=== PATIENT | male | born 1945 ===

== ENCOUNTER 2023-09-26 16:48 | Inpatient (IN) | payer MEDICARE, BC ==
[2023-09-26 17:03] LABS: BASOPHILS ABSOLUTE AUTO 0.03 K/uL (0.00-0.20); BASOPHILS PERCENT AUTO 0.4 % (0.0-1.0); EOSINOPHILS ABSOLUTE AUTO 0.04 K/uL (0.00-0.45); EOSINOPHILS PERCENT AUTO 0.5 % (0.0-6.0); HEMATOCRIT 46.4 % (42.0-52.0); HEMOGLOBIN 15.6 g/dL (14.0-18.0); IMMATURE GRAN ABSOLUTE AUTO 0.03 K/uL (0.00-0.05); IMMATURE GRAN PERCENT AUTO 0.4 % (0.0-0.4); LYMPHOCYTES ABSOLUTE AUTO 0.83 K/uL (1.00-4.80); LYMPHOCYTES PERCENT AUTO 10.9 % (24.0-44.0); MEAN CORPUSCULAR HEMOGLOBIN 29.8 pg (28.0-32.0); MEAN CORPUSCULAR HGB CONC 33.6 g/dL (32.0-36.0); MEAN CORPUSCULAR VOLUME 88.5 fL (83.0-99.0); MEAN PLATELET VOLUME 9.2 fL (9.4-12.4); MONOCYTES ABSOLUTE AUTO 0.61 K/uL (0.00-0.80); NEUTROPHILS ABSOLUTE AUTO 6.06 K/uL (1.80-7.70); NEUTROPHILS PERCENT AUTO 79.8 % (41.0-71.0); PLATELET COUNT,PLT 187 K/uL (150-400); RED BLOOD CELL COUNT 5.24 M/uL (4.52-5.90)
[2023-09-26 17:23] LABS: D-DIMER QUANTITATIVE 2.33 mg/L FEU (0.00-0.50); INR 3.15 (0.86-1.11); PTT,PARTIAL THROMBOPLSTIN TIME 55.1 SEC (23.9-30.7)
[2023-09-26 17:34] LABS: A/G RATIO 0.9 (0.9-1.6); ALBUMIN 3.2 g/dL (3.4-5.0); BILIRUBIN TOTAL 0.6 mg/dL (0.2-1.0); CARBON DIOXIDE,CO2 20.6 mmol/L (21.0-32.0); CREATININE 2.1 mg/dL (0.8-1.3); MAGNESIUM 1.9 mg/dL (1.8-2.4); POTASSIUM,K 4.9 mmol/L (3.5-5.1); PROTEIN TOTAL,TP 6.9 g/dL (6.4-8.2)
[2023-09-26 17:37] LABS: EST CRCL DRUG DOSING (CG) 30.79 mL/min
[2023-09-26] MEDS ORDERED: Sodium Chloride 0.9% 500 ML IV ONE (18:18)
[2023-09-26 18:25] LABS: CORONAVIRUS COVID-19 NAA NEGATIVE (NEGATIVE); INFLUENZA A NAA NEGATIVE (NEGATIVE); INFLUENZA B NAA NEGATIVE (NEGATIVE)
[2023-09-26] MEDS ORDERED: Iopamidol 755 MG/ML 500 ML Multipack Bottle IVPUSH STA (19:01)
[2023-09-27] MEDS ORDERED: Glucagon,Human Recombinant 1 MG Vial IM PRN (00:14)
[2023-09-27] MEDS ORDERED: 50% Dextrose in Water 50 ML Syringe IVPUSH PRN (00:14)
[2023-09-27] MEDS: Acetaminophen 325 MG Tab PO PRN ×2 (02:12→20:13)
[2023-09-27 06:25] LABS: BASOPHILS ABSOLUTE AUTO 0.04 K/uL (0.00-0.20); BASOPHILS PERCENT AUTO 0.6 % (0.0-1.0); EOSINOPHILS ABSOLUTE AUTO 0.03 K/uL (0.00-0.45); EOSINOPHILS PERCENT AUTO 0.5 % (0.0-6.0); HEMATOCRIT 45.2 % (42.0-52.0); IMMATURE GRAN ABSOLUTE AUTO 0.03 K/uL (0.00-0.05); IMMATURE GRAN PERCENT AUTO 0.5 % (0.0-0.4); LYMPHOCYTES ABSOLUTE AUTO 1.46 K/uL (1.00-4.80); LYMPHOCYTES PERCENT AUTO 22.3 % (24.0-44.0); MEAN CORPUSCULAR HEMOGLOBIN 29.1 pg (28.0-32.0); MEAN CORPUSCULAR HGB CONC 33.2 g/dL (32.0-36.0); MEAN CORPUSCULAR VOLUME 87.8 fL (83.0-99.0); MEAN PLATELET VOLUME 9.1 fL (9.4-12.4); MONOCYTES ABSOLUTE AUTO 0.72 K/uL (0.00-0.80); NEUTROPHILS ABSOLUTE AUTO 4.28 K/uL (1.80-7.70); NEUTROPHILS PERCENT AUTO 65.1 % (41.0-71.0); PLATELET COUNT,PLT 167 K/uL (150-400); RED BLOOD CELL COUNT 5.15 M/uL (4.52-5.90); WHITE BLOOD CELL COUNT,WBC 6.56 K/uL (3.9-11.3)
[2023-09-27] MEDS: Insulin Aspart 100 Units/ML 3 ML Pen SUBCUT SCH ×3 (06:30→16:56)
[2023-09-27 06:34] LABS: BILIRUBIN,URINE NEGATIVE (NEGATIVE); COLOR,URINE YELLOW; GLUCOSE,URINE NEGATIVE (NEGATIVE); KETONES,URINE 15 mg/dL (NEGATIVE); LEUKOCYTE ESTERASE,URINE SMALL (NEGATIVE); NITRITE,URINE NEGATIVE (NEGATIVE); OCCULT BLOOD,URINE SMALL (NEGATIVE); PH,URINE 5.5 (5.0-8.0); PROTEIN,URINE TRACE mg/dL (NEGATIVE); UROBILINOGEN,URINE 0.2 EU/dL (<2.0)
[2023-09-27 06:41] LABS: APPEARANCE,URINE HAZY
[2023-09-27 06:44] LABS: AMORPHOUS SEDIMENT,URINE LIGHT (NEGATIVE); BACTERIA,URINE 1+ (NEGATIVE); EPITHELIAL CELLS,URINE FEW (NONE-FEW)
[2023-09-27 06:55] LABS: A/G RATIO 0.9 (0.9-1.6); ALBUMIN 3.1 g/dL (3.4-5.0); BILIRUBIN TOTAL 0.7 mg/dL (0.2-1.0); CALCIUM 8.8 mg/dL (8.5-10.1); CARBON DIOXIDE,CO2 20.9 mmol/L (21.0-32.0); CREATININE 1.9 mg/dL (0.8-1.3); EST CRCL DRUG DOSING (CG) 34.04 mL/min; POTASSIUM,K 4.3 mmol/L (3.5-5.1); PROTEIN TOTAL,TP 6.6 g/dL (6.4-8.2)
[2023-09-27] MEDS ORDERED: Sodium Chloride 0.9% 1,000 ML IV SCH (09:15)
[2023-09-27 10:37] LABS: INR 2.84 (0.86-1.11)
[2023-09-27] MEDS: valACYclovir 500 MG Tab PO SCH ×2 (10:42→20:13)
[2023-09-27 11:09] LABS: HEMOGLOBIN A1C 6.5 %
[2023-09-27] MEDS: cefTRIAXone 1 GM in Sodium Chloride 0.9% 50 ML IV SCH (13:45)
[2023-09-27] MEDS ORDERED: Warfarin Sliding Scale SCH (14:00)
[2023-09-27 20:07] LABS: LACTIC ACID 1.9 mmol/L (0.4-2.0)
[2023-09-28] MEDS: Acetaminophen 325 MG Tab PO PRN ×2 (02:36→12:57)
[2023-09-28 06:50] LABS: BASOPHILS ABSOLUTE AUTO 0.03 K/uL (0.00-0.20); BASOPHILS PERCENT AUTO 0.5 % (0.0-1.0); EOSINOPHILS ABSOLUTE AUTO 0.09 K/uL (0.00-0.45); EOSINOPHILS PERCENT AUTO 1.4 % (0.0-6.0); HEMATOCRIT 42.2 % (42.0-52.0); HEMOGLOBIN 14.2 g/dL (14.0-18.0); IMMATURE GRAN ABSOLUTE AUTO 0.03 K/uL (0.00-0.05); IMMATURE GRAN PERCENT AUTO 0.5 % (0.0-0.4); LYMPHOCYTES ABSOLUTE AUTO 1.36 K/uL (1.00-4.80); LYMPHOCYTES PERCENT AUTO 21.2 % (24.0-44.0); MEAN CORPUSCULAR HEMOGLOBIN 29.5 pg (28.0-32.0); MEAN CORPUSCULAR HGB CONC 33.6 g/dL (32.0-36.0); MEAN CORPUSCULAR VOLUME 87.6 fL (83.0-99.0); MEAN PLATELET VOLUME 9.3 fL (9.4-12.4); MONOCYTES ABSOLUTE AUTO 0.83 K/uL (0.00-0.80); MONOCYTES PERCENT AUTO 12.9 % (0.0-8.0); NEUTROPHILS ABSOLUTE AUTO 4.09 K/uL (1.80-7.70); NEUTROPHILS PERCENT AUTO 63.5 % (41.0-71.0); PLATELET COUNT,PLT 167 K/uL (150-400); RED BLOOD CELL COUNT 4.82 M/uL (4.52-5.90); WHITE BLOOD CELL COUNT,WBC 6.43 K/uL (3.9-11.3)
[2023-09-28 07:18] LABS: INR 2.11 (0.86-1.11)
[2023-09-28] MEDS: Insulin Aspart 100 Units/ML 3 ML Pen SUBCUT SCH ×3 (07:27→18:19)
[2023-09-28 07:28] LABS: CALCIUM 8.4 mg/dL (8.5-10.1); CARBON DIOXIDE,CO2 19.9 mmol/L (21.0-32.0); CREATININE 1.7 mg/dL (0.8-1.3); EST CRCL DRUG DOSING (CG) 38.04 mL/min; POTASSIUM,K 4.3 mmol/L (3.5-5.1)
[2023-09-28] MEDS: valACYclovir 500 MG Tab PO SCH ×2 (08:56→20:01)
[2023-09-28] MEDS ORDERED: Sodium Chloride 0.9% 1,000 ML IV ONE (12:05)
[2023-09-28] MEDS: cefTRIAXone 1 GM in Sodium Chloride 0.9% 50 ML IV SCH (12:30)
[2023-09-28] MEDS: Metoprolol Succinate 100 MG Tab.ER PO SCH (12:30)
[2023-09-28] MEDS ORDERED: Warfarin 2.5 MG Tab PO ONE (14:00)
[2023-09-28] MEDS ORDERED: Warfarin Sliding Scale PO SCH (14:00)
[2023-09-28] MEDS ORDERED: atorvaSTATin 10 MG Tab PO SCH (21:00)
[2023-09-29 06:27] LABS: BASOPHILS ABSOLUTE AUTO 0.03 K/uL (0.00-0.20); BASOPHILS PERCENT AUTO 0.4 % (0.0-1.0); EOSINOPHILS ABSOLUTE AUTO 0.21 K/uL (0.00-0.45); EOSINOPHILS PERCENT AUTO 3.1 % (0.0-6.0); HEMATOCRIT 41.7 % (42.0-52.0); HEMOGLOBIN 14.1 g/dL (14.0-18.0); IMMATURE GRAN ABSOLUTE AUTO 0.04 K/uL (0.00-0.05); IMMATURE GRAN PERCENT AUTO 0.6 % (0.0-0.4); LYMPHOCYTES ABSOLUTE AUTO 1.73 K/uL (1.00-4.80); LYMPHOCYTES PERCENT AUTO 25.7 % (24.0-44.0); MEAN CORPUSCULAR HEMOGLOBIN 29.6 pg (28.0-32.0); MEAN CORPUSCULAR HGB CONC 33.8 g/dL (32.0-36.0); MEAN CORPUSCULAR VOLUME 87.4 fL (83.0-99.0); MEAN PLATELET VOLUME 9.7 fL (9.4-12.4); MONOCYTES ABSOLUTE AUTO 0.77 K/uL (0.00-0.80); MONOCYTES PERCENT AUTO 11.5 % (0.0-8.0); NEUTROPHILS ABSOLUTE AUTO 3.94 K/uL (1.80-7.70); NEUTROPHILS PERCENT AUTO 58.7 % (41.0-71.0); PLATELET COUNT,PLT 183 K/uL (150-400); RED BLOOD CELL COUNT 4.77 M/uL (4.52-5.90); WHITE BLOOD CELL COUNT,WBC 6.72 K/uL (3.9-11.3)
[2023-09-29 06:47] LABS: INR 1.88 (0.86-1.11)
[2023-09-29 06:55] LABS: CALCIUM 8.4 mg/dL (8.5-10.1); CARBON DIOXIDE,CO2 20.7 mmol/L (21.0-32.0); CREATININE 1.6 mg/dL (0.8-1.3); EST CRCL DRUG DOSING (CG) 40.42 mL/min; POTASSIUM,K 4.4 mmol/L (3.5-5.1)
[2023-09-29] MEDS: Insulin Aspart 100 Units/ML 3 ML Pen SUBCUT SCH ×2 (07:09→13:06)
[2023-09-29] MEDS: Metoprolol Succinate 100 MG Tab.ER PO SCH (08:35)
[2023-09-29] MEDS: valACYclovir 500 MG Tab PO SCH (08:35)
[2023-09-29] MEDS ORDERED: Allopurinol 300 MG Tab PO SCH (09:00)
[2023-09-29] MEDS ORDERED: Cefdinir 300 MG Cap PO ONE (13:58)
[2023-09-29] MEDS ORDERED: Warfarin 2.5 MG Tab PO ONE (14:00)
[2023-09-29] MEDS: cefTRIAXone 1 GM in Sodium Chloride 0.9% 50 ML IV SCH (14:21)
[2023-09-29 16:21] VITALS: BP 156/72; PULSE 87
== END 2023-09-29 16:30 | disposition home health service (06) | DRG 596 ==
LOC: MW.ED 16:48 → MW.MS 20:47 → OBSVTOIN 09-28 13:32
PROVIDERS: ADMIT Internal Medicine; ATTEND Internal Medicine
DX: B02.9 Zoster without complications (principal); N17.9 Acute kidney failure, unspecified; R53.1 Weakness; Z88.1 Allergy status to other antibiotic agents; I27.82 Chronic pulmonary embolism; N30.00 Acute cystitis without hematuria; Z68.41 Body mass index [BMI] 40.0-44.9, adult; Z20.822 Contact with and (suspected) exposure to COVID-19; I50.9 Heart failure, unspecified; E86.0 Dehydration; E11.65 Type 2 diabetes mellitus with hyperglycemia; E66.01 Morbid (severe) obesity due to excess calories; E78.2 Mixed hyperlipidemia; M10.9 Gout, unspecified; I11.0 Hypertensive heart disease with heart failure; S01.91XA Laceration without foreign body of unspecified part of head, initial encounter; W18.39XA Other fall on same level, initial encounter; E66.9 Obesity, unspecified; S06.0X0A Concussion without loss of consciousness, initial encounter; I95.1 Orthostatic hypotension; D50.8 Other iron deficiency anemias; Z98.890 Other specified postprocedural states; Z79.84 Long term (current) use of oral hypoglycemic drugs; Z79.4 Long term (current) use of insulin; Z87.891 Personal history of nicotine dependence; Z79.01 Long term (current) use of anticoagulants; Z79.899 Other long term (current) drug therapy; Z11.52 Encounter for screening for COVID-19
CPT/HCPCS: 0240U; 36415; 70450; 71045; 71275; 72125; 80048; 80053; 81001; 82947; 83036; 83605; 83735; 83880; 84484; 85025; 85379; 85610; 85730; 87040; 87086; 93005; 97162; 97530; 93010; 96360; 96361; 99284; 99285; A9270-GY; G0378; J0696; J3490; J7030; Q9967

== ENCOUNTER 2023-10-01 21:43 | Emergency (ER) | payer MEDICARE, BC ==
[2023-10-01] MEDS ORDERED: Sodium Chloride 0.9% 500 ML IV SCH (22:15)
[2023-10-01 22:25] LABS: BASOPHILS ABSOLUTE AUTO 0.04 K/uL (0.00-0.20); BASOPHILS PERCENT AUTO 0.5 % (0.0-1.0); EOSINOPHILS ABSOLUTE AUTO 0.25 K/uL (0.00-0.45); EOSINOPHILS PERCENT AUTO 2.9 % (0.0-6.0); HEMATOCRIT 40.7 % (42.0-52.0); HEMOGLOBIN 13.7 g/dL (14.0-18.0); IMMATURE GRAN ABSOLUTE AUTO 0.03 K/uL (0.00-0.05); IMMATURE GRAN PERCENT AUTO 0.3 % (0.0-0.4); LYMPHOCYTES ABSOLUTE AUTO 1.59 K/uL (1.00-4.80); LYMPHOCYTES PERCENT AUTO 18.4 % (24.0-44.0); MEAN CORPUSCULAR HEMOGLOBIN 29.5 pg (28.0-32.0); MEAN CORPUSCULAR HGB CONC 33.7 g/dL (32.0-36.0); MEAN CORPUSCULAR VOLUME 87.5 fL (83.0-99.0); MONOCYTES ABSOLUTE AUTO 0.56 K/uL (0.00-0.80); MONOCYTES PERCENT AUTO 6.5 % (0.0-8.0); NEUTROPHILS ABSOLUTE AUTO 6.19 K/uL (1.80-7.70); NEUTROPHILS PERCENT AUTO 71.4 % (41.0-71.0); PLATELET COUNT,PLT 229 K/uL (150-400); RED BLOOD CELL COUNT 4.65 M/uL (4.52-5.90); WHITE BLOOD CELL COUNT,WBC 8.66 K/uL (3.9-11.3)
[2023-10-01 22:43] LABS: INR 1.77 (0.86-1.11)
[2023-10-01 22:58] LABS: A/G RATIO 0.8 (0.9-1.6); ALBUMIN 2.8 g/dL (3.4-5.0); BILIRUBIN TOTAL 0.5 mg/dL (0.2-1.0); CALCIUM 8.5 mg/dL (8.5-10.1); CARBON DIOXIDE,CO2 21.5 mmol/L (21.0-32.0); CREATININE 2.3 mg/dL (0.8-1.3); EST CRCL DRUG DOSING (CG) 28.12 mL/min; POTASSIUM,K 4.5 mmol/L (3.5-5.1); PROTEIN TOTAL,TP 6.4 g/dL (6.4-8.2)
[2023-10-02 00:18] LABS: APPEARANCE,URINE SLT CLOUDY; BILIRUBIN,URINE NEGATIVE (NEGATIVE); COLOR,URINE YELLOW; GLUCOSE,URINE NEGATIVE (NEGATIVE); KETONES,URINE NEGATIVE (NEGATIVE); LEUKOCYTE ESTERASE,URINE SMALL (NEGATIVE); NITRITE,URINE NEGATIVE (NEGATIVE); OCCULT BLOOD,URINE LARGE (NEGATIVE); PH,URINE 5.5 (5.0-8.0); PROTEIN,URINE TRACE mg/dL (NEGATIVE); UROBILINOGEN,URINE 0.2 EU/dL (<2.0)
[2023-10-02 00:29] LABS: BACTERIA,URINE 1+ (NEGATIVE); EPITHELIAL CELLS,URINE MODERATE (NONE-FEW); MUCUS,URINE LIGHT (NONE-MOD); RBC,URINE 55-60 (0-2/HPF)
[2023-10-02 01:59] VITALS: BP 100/66; PULSE 68
== END 2023-10-02 07:00 | disposition left against medical advice (07) ==
LOC: MW.ED 21:43
DX: N17.9 Acute kidney failure, unspecified (principal); R53.81 Other malaise; N28.9 Disorder of kidney and ureter, unspecified; E11.9 Type 2 diabetes mellitus without complications; E66.9 Obesity, unspecified; Z87.891 Personal history of nicotine dependence; Z79.84 Long term (current) use of oral hypoglycemic drugs; Z79.01 Long term (current) use of anticoagulants; Z79.4 Long term (current) use of insulin; Z79.899 Other long term (current) drug therapy; Z88.1 Allergy status to other antibiotic agents; Z68.42 Body mass index [BMI] 45.0-49.9, adult
CPT/HCPCS: 36415; 80053; 81001; 82550; 84484; 85025; 85610; 87086; 93005; 99285; J7040; 93010; 99283

== ENCOUNTER 2023-10-12 09:31 | Inpatient (IN) | payer MEDICARE, BC ==
[2023-10-12] MEDS ORDERED: Diphtheria,Pertussis(Acell),Tetanus Vaccine 0.5 ML Syringe IM ONE (09:36)
[2023-10-12 10:28] LABS: BASE EXCESS VENOUS -3.2 (-2.0-3.0); PH,VENOUS 7.41 (7.31-7.41)
[2023-10-12 10:29] LABS: BASOPHILS ABSOLUTE AUTO 0.02 K/uL (0.00-0.20); BASOPHILS PERCENT AUTO 0.3 % (0.0-1.0); EOSINOPHILS ABSOLUTE AUTO 0.23 K/uL (0.00-0.45); HEMATOCRIT 39.1 % (42.0-52.0); HEMOGLOBIN 13.3 g/dL (14.0-18.0); IMMATURE GRAN ABSOLUTE AUTO 0.02 K/uL (0.00-0.05); IMMATURE GRAN PERCENT AUTO 0.3 % (0.0-0.4); LYMPHOCYTES PERCENT AUTO 24.1 % (24.0-44.0); MEAN CORPUSCULAR HEMOGLOBIN 30.4 pg (28.0-32.0); MEAN CORPUSCULAR VOLUME 89.3 fL (83.0-99.0); MEAN PLATELET VOLUME 9.3 fL (9.4-12.4); MONOCYTES ABSOLUTE AUTO 0.38 K/uL (0.00-0.80); MONOCYTES PERCENT AUTO 6.5 % (0.0-8.0); NEUTROPHILS ABSOLUTE AUTO 3.77 K/uL (1.80-7.70); NEUTROPHILS PERCENT AUTO 64.8 % (41.0-71.0); PLATELET COUNT,PLT 164 K/uL (150-400); RED BLOOD CELL COUNT 4.38 M/uL (4.52-5.90); WHITE BLOOD CELL COUNT,WBC 5.82 K/uL (3.9-11.3)
[2023-10-12 10:42] LABS: INR 2.44 (0.86-1.11); PTT,PARTIAL THROMBOPLSTIN TIME 53.7 SEC (23.9-30.7)
[2023-10-12] MEDS ORDERED: Hydrogen Peroxide 3% Top Soln 473 ML Bottle ONE (10:43)
[2023-10-12 11:05] LABS: A/G RATIO 0.7 (0.9-1.6); ALBUMIN 2.5 g/dL (3.4-5.0); BILIRUBIN TOTAL 0.4 mg/dL (0.2-1.0); CALCIUM 8.7 mg/dL (8.5-10.1); CARBON DIOXIDE,CO2 19.2 mmol/L (21.0-32.0); CREATININE 1.4 mg/dL (0.8-1.3); EST CRCL DRUG DOSING (CG) 46.19 mL/min; MAGNESIUM 1.6 mg/dL (1.8-2.4); POTASSIUM,K 4.6 mmol/L (3.5-5.1); PROTEIN TOTAL,TP 6.2 g/dL (6.4-8.2); TSH ULTRASENSITIVE 4.41 uIU/mL (0.36-3.74)
[2023-10-12] MEDS ORDERED: Magnesium Sulfate/Water 2 GM in Premix Bag 1 BAG IV ONE (11:11)
[2023-10-12 11:24] LABS: T4 FREE 1.16 ng/dL (0.76-1.46)
[2023-10-12] MEDS ORDERED: Warfarin 5 MG Tab PO SCH ×2 (14:30)
[2023-10-12] MEDS ORDERED: Warfarin 2.5 MG Tab PO ONE ×2 (15:00→17:15)
[2023-10-12 15:14] LABS: INR 2.52 (0.86-1.11)
[2023-10-12] MEDS ORDERED: Glucagon,Human Recombinant 1 MG Vial IM PRN (16:22)
[2023-10-12] MEDS ORDERED: 50% Dextrose in Water 50 ML Syringe IVPUSH PRN (16:22)
[2023-10-12] MEDS ORDERED: Insulin Aspart 100 Units/ML 3 ML Pen SUBCUT SCH (17:00)
[2023-10-12] MEDS: Warfarin Sliding Scale PO SCH (17:02)
[2023-10-12] MEDS: Insulin Aspart 100 Units/ML 3 ML Pen SUBCUT SCH (17:09)
[2023-10-12 19:41] LABS: APPEARANCE,URINE CLOUDY; BILIRUBIN,URINE NEGATIVE (NEGATIVE); COLOR,URINE YELLOW; GLUCOSE,URINE NEGATIVE (NEGATIVE); KETONES,URINE TRACE mg/dL (NEGATIVE); LEUKOCYTE ESTERASE,URINE SMALL (NEGATIVE); NITRITE,URINE NEGATIVE (NEGATIVE); OCCULT BLOOD,URINE LARGE (NEGATIVE); PH,URINE 5.5 (5.0-8.0); PROTEIN,URINE 100 mg/dL (NEGATIVE); UROBILINOGEN,URINE 0.2 EU/dL (<2.0)
[2023-10-12 19:54] LABS: AMORPHOUS SEDIMENT,URINE LIGHT (NEGATIVE); BACTERIA,URINE FEW (NEGATIVE); EPITHELIAL CELLS,URINE RARE (NONE-FEW); RBC,URINE 20-25 (0-2/HPF); YEAST,URINE MODERATE
[2023-10-13] MEDS: Acetaminophen 325 MG Tab PO PRN ×2 (03:52→10:38)
[2023-10-13] MEDS ORDERED: Pregabalin 50 MG Cap PO PRN (05:09)
[2023-10-13 05:55] LABS: BASOPHILS ABSOLUTE AUTO 0.02 K/uL (0.00-0.20); BASOPHILS PERCENT AUTO 0.5 % (0.0-1.0); EOSINOPHILS ABSOLUTE AUTO 0.24 K/uL (0.00-0.45); EOSINOPHILS PERCENT AUTO 5.6 % (0.0-6.0); HEMATOCRIT 35.2 % (42.0-52.0); HEMOGLOBIN 11.8 g/dL (14.0-18.0); IMMATURE GRAN ABSOLUTE AUTO 0.01 K/uL (0.00-0.05); IMMATURE GRAN PERCENT AUTO 0.2 % (0.0-0.4); LYMPHOCYTES ABSOLUTE AUTO 1.31 K/uL (1.00-4.80); LYMPHOCYTES PERCENT AUTO 30.8 % (24.0-44.0); MEAN CORPUSCULAR HEMOGLOBIN 29.8 pg (28.0-32.0); MEAN CORPUSCULAR HGB CONC 33.5 g/dL (32.0-36.0); MEAN CORPUSCULAR VOLUME 88.9 fL (83.0-99.0); MONOCYTES ABSOLUTE AUTO 0.36 K/uL (0.00-0.80); MONOCYTES PERCENT AUTO 8.5 % (0.0-8.0); NEUTROPHILS ABSOLUTE AUTO 2.31 K/uL (1.80-7.70); NEUTROPHILS PERCENT AUTO 54.4 % (41.0-71.0); PLATELET COUNT,PLT 158 K/uL (150-400); RED BLOOD CELL COUNT 3.96 M/uL (4.52-5.90); WHITE BLOOD CELL COUNT,WBC 4.25 K/uL (3.9-11.3)
[2023-10-13 06:23] LABS: A/G RATIO 0.7 (0.9-1.6); ALBUMIN 2.5 g/dL (3.4-5.0); BILIRUBIN TOTAL 0.5 mg/dL (0.2-1.0); CALCIUM 8.3 mg/dL (8.5-10.1); CARBON DIOXIDE,CO2 24.5 mmol/L (21.0-32.0); CREATININE 1.5 mg/dL (0.8-1.3); EST CRCL DRUG DOSING (CG) 43.11 mL/min; POTASSIUM,K 4.3 mmol/L (3.5-5.1); PROTEIN TOTAL,TP 5.9 g/dL (6.4-8.2)
[2023-10-13] MEDS: Insulin Aspart 100 Units/ML 3 ML Pen SUBCUT SCH ×3 (06:41→17:05)
[2023-10-13] MEDS: Albuterol/Ipratropium 3.0-0.5 MG/3 ML Neb Soln NEB PRN (10:27)
[2023-10-13] MEDS: Allopurinol 300 MG Tab PO SCH (12:00)
[2023-10-13] MEDS: Metoprolol Succinate 100 MG Tab.ER PO SCH (12:00)
[2023-10-13] MEDS: Lisinopril 10 MG Tab PO SCH ×2 (12:00→20:49)
[2023-10-13 12:35] LABS: INR 2.99 (0.86-1.11)
[2023-10-13] MEDS ORDERED: Warfarin 2.5 MG Tab PO ONE (14:00)
[2023-10-13] MEDS: Warfarin Sliding Scale PO SCH (14:55)
[2023-10-13] MEDS: Pregabalin 50 MG Cap PO PRN (19:41)
[2023-10-13] MEDS: Pravastatin 40 MG Tab PO SCH (20:49)
[2023-10-14] MEDS: Acetaminophen 325 MG Tab PO PRN ×2 (01:03→14:11)
[2023-10-14] MEDS: Albuterol/Ipratropium 3.0-0.5 MG/3 ML Neb Soln NEB PRN ×3 (01:04→18:43)
[2023-10-14 06:06] LABS: BASOPHILS ABSOLUTE AUTO 0.02 K/uL (0.00-0.20); BASOPHILS PERCENT AUTO 0.6 % (0.0-1.0); EOSINOPHILS ABSOLUTE AUTO 0.27 K/uL (0.00-0.45); EOSINOPHILS PERCENT AUTO 7.8 % (0.0-6.0); HEMATOCRIT 33.9 % (42.0-52.0); HEMOGLOBIN 11.1 g/dL (14.0-18.0); IMMATURE GRAN ABSOLUTE AUTO 0.01 K/uL (0.00-0.05); IMMATURE GRAN PERCENT AUTO 0.3 % (0.0-0.4); LYMPHOCYTES ABSOLUTE AUTO 1.28 K/uL (1.00-4.80); LYMPHOCYTES PERCENT AUTO 37.2 % (24.0-44.0); MEAN CORPUSCULAR HEMOGLOBIN 29.4 pg (28.0-32.0); MEAN CORPUSCULAR HGB CONC 32.7 g/dL (32.0-36.0); MEAN CORPUSCULAR VOLUME 89.9 fL (83.0-99.0); MEAN PLATELET VOLUME 9.5 fL (9.4-12.4); MONOCYTES ABSOLUTE AUTO 0.34 K/uL (0.00-0.80); MONOCYTES PERCENT AUTO 9.9 % (0.0-8.0); NEUTROPHILS ABSOLUTE AUTO 1.52 K/uL (1.80-7.70); NEUTROPHILS PERCENT AUTO 44.2 % (41.0-71.0); PLATELET COUNT,PLT 143 K/uL (150-400); RED BLOOD CELL COUNT 3.77 M/uL (4.52-5.90); WHITE BLOOD CELL COUNT,WBC 3.44 K/uL (3.9-11.3)
[2023-10-14 06:22] LABS: INR 3.51 (0.86-1.11)
[2023-10-14 06:39] LABS: A/G RATIO 0.7 (0.9-1.6); ALBUMIN 2.4 g/dL (3.4-5.0); BILIRUBIN TOTAL 0.4 mg/dL (0.2-1.0); CALCIUM 8.1 mg/dL (8.5-10.1); CARBON DIOXIDE,CO2 25.3 mmol/L (21.0-32.0); CREATININE 1.3 mg/dL (0.8-1.3); EST CRCL DRUG DOSING (CG) 49.74 mL/min; POTASSIUM,K 3.9 mmol/L (3.5-5.1); PROTEIN TOTAL,TP 5.8 g/dL (6.4-8.2)
[2023-10-14] MEDS: Pregabalin 50 MG Cap PO PRN ×2 (06:45→14:58)
[2023-10-14] MEDS: Insulin Aspart 100 Units/ML 3 ML Pen SUBCUT SCH ×3 (07:30→18:17)
[2023-10-14] MEDS: Allopurinol 300 MG Tab PO SCH (09:40)
[2023-10-14] MEDS: Metoprolol Succinate 100 MG Tab.ER PO SCH (09:41)
[2023-10-14] MEDS: Lisinopril 10 MG Tab PO SCH ×2 (09:50→20:12)
[2023-10-14] MEDS: Warfarin Sliding Scale PO SCH (14:58)
[2023-10-14] MEDS: Pravastatin 40 MG Tab PO SCH (20:12)
[2023-10-15 06:05] LABS: BASOPHILS ABSOLUTE AUTO 0.02 K/uL (0.00-0.20); BASOPHILS PERCENT AUTO 0.5 % (0.0-1.0); EOSINOPHILS ABSOLUTE AUTO 0.23 K/uL (0.00-0.45); EOSINOPHILS PERCENT AUTO 5.5 % (0.0-6.0); HEMATOCRIT 36.3 % (42.0-52.0); HEMOGLOBIN 11.4 g/dL (14.0-18.0); LYMPHOCYTES ABSOLUTE AUTO 1.56 K/uL (1.00-4.80); MEAN CORPUSCULAR HEMOGLOBIN 29.1 pg (28.0-32.0); MEAN CORPUSCULAR HGB CONC 31.4 g/dL (32.0-36.0); MEAN CORPUSCULAR VOLUME 92.6 fL (83.0-99.0); MEAN PLATELET VOLUME 9.5 fL (9.4-12.4); MONOCYTES ABSOLUTE AUTO 0.29 K/uL (0.00-0.80); MONOCYTES PERCENT AUTO 6.9 % (0.0-8.0); NEUTROPHILS ABSOLUTE AUTO 2.12 K/uL (1.80-7.70); NEUTROPHILS PERCENT AUTO 50.1 % (41.0-71.0); PLATELET COUNT,PLT 159 K/uL (150-400); RED BLOOD CELL COUNT 3.92 M/uL (4.52-5.90); WHITE BLOOD CELL COUNT,WBC 4.22 K/uL (3.9-11.3)
[2023-10-15 06:20] LABS: INR 2.95 (0.86-1.11)
[2023-10-15 06:28] LABS: A/G RATIO 0.7 (0.9-1.6); ALBUMIN 2.5 g/dL (3.4-5.0); BILIRUBIN TOTAL 0.3 mg/dL (0.2-1.0); CALCIUM 8.3 mg/dL (8.5-10.1); CARBON DIOXIDE,CO2 26.5 mmol/L (21.0-32.0); CREATININE 1.2 mg/dL (0.8-1.3); EST CRCL DRUG DOSING (CG) 53.89 mL/min; POTASSIUM,K 4.3 mmol/L (3.5-5.1); PROTEIN TOTAL,TP 5.9 g/dL (6.4-8.2)
[2023-10-15] MEDS: Insulin Aspart 100 Units/ML 3 ML Pen SUBCUT SCH ×3 (07:46→16:04)
[2023-10-15] MEDS: Lisinopril 10 MG Tab PO SCH ×2 (08:08→20:30)
[2023-10-15] MEDS: Metoprolol Succinate 100 MG Tab.ER PO SCH (08:08)
[2023-10-15] MEDS: Allopurinol 300 MG Tab PO SCH (08:08)
[2023-10-15] MEDS: Pregabalin 50 MG Cap PO PRN ×2 (08:54→21:59)
[2023-10-15] MEDS: Acetaminophen 325 MG Tab PO PRN ×2 (08:54→16:08)
[2023-10-15] MEDS: Albuterol/Ipratropium 3.0-0.5 MG/3 ML Neb Soln NEB PRN ×2 (12:41→16:28)
[2023-10-15] MEDS ORDERED: Warfarin 2.5 MG Tab PO ONE (14:00)
[2023-10-15] MEDS: Warfarin Sliding Scale PO SCH (14:24)
[2023-10-15] MEDS: Pravastatin 40 MG Tab PO SCH (20:30)
[2023-10-16] MEDS: Acetaminophen 325 MG Tab PO PRN (05:13)
[2023-10-16 05:51] LABS: BASOPHILS ABSOLUTE AUTO 0.03 K/uL (0.00-0.20); BASOPHILS PERCENT AUTO 0.6 % (0.0-1.0); EOSINOPHILS ABSOLUTE AUTO 0.31 K/uL (0.00-0.45); EOSINOPHILS PERCENT AUTO 6.2 % (0.0-6.0); HEMATOCRIT 35.5 % (42.0-52.0); HEMOGLOBIN 11.6 g/dL (14.0-18.0); IMMATURE GRAN ABSOLUTE AUTO 0.02 K/uL (0.00-0.05); IMMATURE GRAN PERCENT AUTO 0.4 % (0.0-0.4); LYMPHOCYTES ABSOLUTE AUTO 1.72 K/uL (1.00-4.80); LYMPHOCYTES PERCENT AUTO 34.5 % (24.0-44.0); MEAN CORPUSCULAR HEMOGLOBIN 29.4 pg (28.0-32.0); MEAN CORPUSCULAR HGB CONC 32.7 g/dL (32.0-36.0); MEAN CORPUSCULAR VOLUME 89.9 fL (83.0-99.0); MEAN PLATELET VOLUME 9.5 fL (9.4-12.4); MONOCYTES ABSOLUTE AUTO 0.43 K/uL (0.00-0.80); MONOCYTES PERCENT AUTO 8.6 % (0.0-8.0); NEUTROPHILS ABSOLUTE AUTO 2.47 K/uL (1.80-7.70); NEUTROPHILS PERCENT AUTO 49.7 % (41.0-71.0); PLATELET COUNT,PLT 174 K/uL (150-400); RED BLOOD CELL COUNT 3.95 M/uL (4.52-5.90); WHITE BLOOD CELL COUNT,WBC 4.98 K/uL (3.9-11.3)
[2023-10-16 06:18] LABS: CALCIUM 8.2 mg/dL (8.5-10.1); CARBON DIOXIDE,CO2 25.2 mmol/L (21.0-32.0); CREATININE 1.3 mg/dL (0.8-1.3); EST CRCL DRUG DOSING (CG) 49.74 mL/min; POTASSIUM,K 4.4 mmol/L (3.5-5.1)
[2023-10-16] MEDS: Insulin Aspart 100 Units/ML 3 ML Pen SUBCUT SCH ×3 (07:00→18:16)
[2023-10-16] MEDS: Metoprolol Succinate 100 MG Tab.ER PO SCH (08:31)
[2023-10-16] MEDS: Lisinopril 10 MG Tab PO SCH ×2 (08:32→20:16)
[2023-10-16] MEDS: Allopurinol 300 MG Tab PO SCH (08:32)
[2023-10-16 10:04] LABS: INR 2.3 (0.86-1.11)
[2023-10-16] MEDS: Warfarin Sliding Scale PO SCH (13:53)
[2023-10-16] MEDS ORDERED: Warfarin 2.5 MG Tab PO ONE (14:00)
[2023-10-16] MEDS: Pravastatin 40 MG Tab PO SCH (20:16)
[2023-10-16] MEDS: Albuterol/Ipratropium 3.0-0.5 MG/3 ML Neb Soln NEB PRN (23:10)
[2023-10-16] MEDS: Pregabalin 50 MG Cap PO PRN (23:26)
[2023-10-17 05:39] LABS: BASOPHILS ABSOLUTE AUTO 0.03 K/uL (0.00-0.20); BASOPHILS PERCENT AUTO 0.6 % (0.0-1.0); EOSINOPHILS ABSOLUTE AUTO 0.33 K/uL (0.00-0.45); EOSINOPHILS PERCENT AUTO 6.5 % (0.0-6.0); HEMATOCRIT 36.4 % (42.0-52.0); HEMOGLOBIN 11.3 g/dL (14.0-18.0); IMMATURE GRAN ABSOLUTE AUTO 0.03 K/uL (0.00-0.05); IMMATURE GRAN PERCENT AUTO 0.6 % (0.0-0.4); LYMPHOCYTES ABSOLUTE AUTO 1.76 K/uL (1.00-4.80); LYMPHOCYTES PERCENT AUTO 34.6 % (24.0-44.0); MEAN CORPUSCULAR HEMOGLOBIN 29.2 pg (28.0-32.0); MEAN CORPUSCULAR VOLUME 94.1 fL (83.0-99.0); MEAN PLATELET VOLUME 9.5 fL (9.4-12.4); MONOCYTES ABSOLUTE AUTO 0.45 K/uL (0.00-0.80); MONOCYTES PERCENT AUTO 8.8 % (0.0-8.0); NEUTROPHILS ABSOLUTE AUTO 2.49 K/uL (1.80-7.70); NEUTROPHILS PERCENT AUTO 48.9 % (41.0-71.0); PLATELET COUNT,PLT 196 K/uL (150-400); RED BLOOD CELL COUNT 3.87 M/uL (4.52-5.90); WHITE BLOOD CELL COUNT,WBC 5.09 K/uL (3.9-11.3)
[2023-10-17 05:52] LABS: INR 2.26 (0.86-1.11)
[2023-10-17 06:03] LABS: A/G RATIO 0.7 (0.9-1.6); ALBUMIN 2.5 g/dL (3.4-5.0); BILIRUBIN TOTAL 0.4 mg/dL (0.2-1.0); CALCIUM 8.4 mg/dL (8.5-10.1); CARBON DIOXIDE,CO2 28.4 mmol/L (21.0-32.0); CREATININE 1.4 mg/dL (0.8-1.3); EST CRCL DRUG DOSING (CG) 46.19 mL/min; POTASSIUM,K 4.7 mmol/L (3.5-5.1); PROTEIN TOTAL,TP 6.1 g/dL (6.4-8.2)
[2023-10-17] MEDS: Insulin Aspart 100 Units/ML 3 ML Pen SUBCUT SCH ×3 (08:48→18:41)
[2023-10-17] MEDS: Lisinopril 10 MG Tab PO SCH ×2 (09:29→20:16)
[2023-10-17] MEDS: Allopurinol 300 MG Tab PO SCH (09:30)
[2023-10-17] MEDS: Metoprolol Succinate 100 MG Tab.ER PO SCH (09:30)
[2023-10-17] MEDS ORDERED: Warfarin 2.5 MG Tab PO ONE (14:00)
[2023-10-17] MEDS: Warfarin Sliding Scale PO SCH (14:26)
[2023-10-17] MEDS: Cyanocobalamin (Vitamin B12) 500 MCG Tab PO SCH (20:14)
[2023-10-17] MEDS: Pravastatin 40 MG Tab PO SCH (20:14)
[2023-10-18] MEDS ORDERED: LORazepam 1 MG Tab PO ONE (01:10)
[2023-10-18 06:12] LABS: BASOPHILS ABSOLUTE AUTO 0.03 K/uL (0.00-0.20); BASOPHILS PERCENT AUTO 0.5 % (0.0-1.0); EOSINOPHILS ABSOLUTE AUTO 0.39 K/uL (0.00-0.45); EOSINOPHILS PERCENT AUTO 6.3 % (0.0-6.0); HEMATOCRIT 36.7 % (42.0-52.0); IMMATURE GRAN ABSOLUTE AUTO 0.02 K/uL (0.00-0.05); IMMATURE GRAN PERCENT AUTO 0.3 % (0.0-0.4); LYMPHOCYTES ABSOLUTE AUTO 1.59 K/uL (1.00-4.80); LYMPHOCYTES PERCENT AUTO 25.8 % (24.0-44.0); MEAN CORPUSCULAR HEMOGLOBIN 29.5 pg (28.0-32.0); MEAN CORPUSCULAR HGB CONC 32.7 g/dL (32.0-36.0); MEAN CORPUSCULAR VOLUME 90.2 fL (83.0-99.0); MEAN PLATELET VOLUME 9.5 fL (9.4-12.4); MONOCYTES ABSOLUTE AUTO 0.47 K/uL (0.00-0.80); MONOCYTES PERCENT AUTO 7.6 % (0.0-8.0); NEUTROPHILS ABSOLUTE AUTO 3.66 K/uL (1.80-7.70); NEUTROPHILS PERCENT AUTO 59.5 % (41.0-71.0); NRBC ABSOLUTE 0.02 K/uL (0.00-0.02); NRBC PERCENT 0.3 /100WBC (0.0-0.2); PLATELET COUNT,PLT 237 K/uL (150-400); RED BLOOD CELL COUNT 4.07 M/uL (4.52-5.90); WHITE BLOOD CELL COUNT,WBC 6.16 K/uL (3.9-11.3)
[2023-10-18 06:27] LABS: INR 2.37 (0.86-1.11)
[2023-10-18] MEDS: Insulin Aspart 100 Units/ML 3 ML Pen SUBCUT SCH ×3 (06:37→17:22)
[2023-10-18 06:49] LABS: A/G RATIO 0.7 (0.9-1.6); ALBUMIN 2.7 g/dL (3.4-5.0); BILIRUBIN TOTAL 0.7 mg/dL (0.2-1.0); CALCIUM 8.7 mg/dL (8.5-10.1); CARBON DIOXIDE,CO2 24.7 mmol/L (21.0-32.0); CREATININE 1.4 mg/dL (0.8-1.3); EST CRCL DRUG DOSING (CG) 46.19 mL/min; POTASSIUM,K 4.2 mmol/L (3.5-5.1); PROTEIN TOTAL,TP 6.5 g/dL (6.4-8.2)
[2023-10-18] MEDS: Acetaminophen 325 MG Tab PO PRN ×2 (07:49→15:08)
[2023-10-18] MEDS: Lisinopril 10 MG Tab PO SCH ×2 (08:06→21:14)
[2023-10-18] MEDS: Cyanocobalamin (Vitamin B12) 500 MCG Tab PO SCH (08:06)
[2023-10-18] MEDS: Metoprolol Succinate 100 MG Tab.ER PO SCH (08:07)
[2023-10-18] MEDS: Cholecalciferol (Vitamin D3) 25 MCG Tab PO SCH (08:07)
[2023-10-18] MEDS: Allopurinol 300 MG Tab PO SCH (08:07)
[2023-10-18] MEDS: Folic Acid 1 MG Tab PO SCH (08:07)
[2023-10-18] MEDS: Thiamine 100 MG Tab PO SCH (08:07)
[2023-10-18] MEDS: Albuterol/Ipratropium 3.0-0.5 MG/3 ML Neb Soln NEB PRN ×2 (09:45→14:40)
[2023-10-18] MEDS ORDERED: QUEtiapine 25 MG Tab PO PRN (12:05)
[2023-10-18] MEDS ORDERED: Warfarin 2.5 MG Tab PO ONE (14:00)
[2023-10-18] MEDS: Warfarin Sliding Scale PO SCH (15:21)
[2023-10-18] MEDS ORDERED: QUEtiapine 25 MG Tab PO SCH (21:00)
[2023-10-18] MEDS: Pravastatin 40 MG Tab PO SCH (21:14)
[2023-10-19] MEDS: Pregabalin 50 MG Cap PO PRN ×2 (01:16→23:12)
[2023-10-19 05:44] LABS: BASOPHILS ABSOLUTE AUTO 0.02 K/uL (0.00-0.20); BASOPHILS PERCENT AUTO 0.4 % (0.0-1.0); EOSINOPHILS ABSOLUTE AUTO 0.38 K/uL (0.00-0.45); EOSINOPHILS PERCENT AUTO 7.3 % (0.0-6.0); HEMATOCRIT 33.6 % (42.0-52.0); IMMATURE GRAN ABSOLUTE AUTO 0.02 K/uL (0.00-0.05); IMMATURE GRAN PERCENT AUTO 0.4 % (0.0-0.4); LYMPHOCYTES ABSOLUTE AUTO 1.37 K/uL (1.00-4.80); LYMPHOCYTES PERCENT AUTO 26.2 % (24.0-44.0); MEAN CORPUSCULAR HEMOGLOBIN 29.3 pg (28.0-32.0); MEAN CORPUSCULAR HGB CONC 32.7 g/dL (32.0-36.0); MEAN CORPUSCULAR VOLUME 89.6 fL (83.0-99.0); MEAN PLATELET VOLUME 9.2 fL (9.4-12.4); MONOCYTES ABSOLUTE AUTO 0.44 K/uL (0.00-0.80); MONOCYTES PERCENT AUTO 8.4 % (0.0-8.0); NEUTROPHILS ABSOLUTE AUTO 2.99 K/uL (1.80-7.70); NEUTROPHILS PERCENT AUTO 57.3 % (41.0-71.0); PLATELET COUNT,PLT 221 K/uL (150-400); RED BLOOD CELL COUNT 3.75 M/uL (4.52-5.90); WHITE BLOOD CELL COUNT,WBC 5.22 K/uL (3.9-11.3)
[2023-10-19 05:56] LABS: INR 2.5 (0.86-1.11)
[2023-10-19 06:15] LABS: A/G RATIO 0.7 (0.9-1.6); ALBUMIN 2.5 g/dL (3.4-5.0); BILIRUBIN TOTAL 0.5 mg/dL (0.2-1.0); CALCIUM 8.2 mg/dL (8.5-10.1); CARBON DIOXIDE,CO2 25.9 mmol/L (21.0-32.0); CREATININE 1.4 mg/dL (0.8-1.3); EST CRCL DRUG DOSING (CG) 46.19 mL/min; POTASSIUM,K 4.1 mmol/L (3.5-5.1)
[2023-10-19] MEDS: Insulin Aspart 100 Units/ML 3 ML Pen SUBCUT SCH ×3 (07:40→18:54)
[2023-10-19] MEDS: Cholecalciferol (Vitamin D3) 25 MCG Tab PO SCH (09:08)
[2023-10-19] MEDS: Metoprolol Succinate 100 MG Tab.ER PO SCH (09:08)
[2023-10-19] MEDS: Cyanocobalamin (Vitamin B12) 500 MCG Tab PO SCH (09:09)
[2023-10-19] MEDS: Thiamine 100 MG Tab PO SCH (09:09)
[2023-10-19] MEDS: Folic Acid 1 MG Tab PO SCH (09:09)
[2023-10-19] MEDS: Lisinopril 10 MG Tab PO SCH ×2 (09:09→19:59)
[2023-10-19] MEDS: Allopurinol 300 MG Tab PO SCH (09:09)
[2023-10-19 10:36] LABS: PHOSPHORUS 3.2 mg/dL (2.6-4.7)
[2023-10-19] MEDS ORDERED: Warfarin 2.5 MG Tab PO ONE (14:00)
[2023-10-19] MEDS: Warfarin Sliding Scale PO SCH (18:53)
[2023-10-19] MEDS: Pantoprazole 40 MG Tab.CR PO SCH (19:59)
[2023-10-19] MEDS: Pravastatin 40 MG Tab PO SCH (19:59)
[2023-10-19] MEDS: QUEtiapine 25 MG Tab PO SCH (20:00)
[2023-10-19] MEDS: Albuterol/Ipratropium 3.0-0.5 MG/3 ML Neb Soln NEB PRN (20:05)
[2023-10-20 07:06] LABS: BASOPHILS ABSOLUTE AUTO 0.03 K/uL (0.00-0.20); BASOPHILS PERCENT AUTO 0.6 % (0.0-1.0); EOSINOPHILS ABSOLUTE AUTO 0.42 K/uL (0.00-0.45); EOSINOPHILS PERCENT AUTO 8.1 % (0.0-6.0); HEMATOCRIT 36.2 % (42.0-52.0); HEMOGLOBIN 11.3 g/dL (14.0-18.0); IMMATURE GRAN ABSOLUTE AUTO 0.02 K/uL (0.00-0.05); IMMATURE GRAN PERCENT AUTO 0.4 % (0.0-0.4); LYMPHOCYTES ABSOLUTE AUTO 1.34 K/uL (1.00-4.80); LYMPHOCYTES PERCENT AUTO 25.9 % (24.0-44.0); MEAN CORPUSCULAR HGB CONC 31.2 g/dL (32.0-36.0); MEAN CORPUSCULAR VOLUME 93.1 fL (83.0-99.0); MEAN PLATELET VOLUME 9.6 fL (9.4-12.4); MONOCYTES ABSOLUTE AUTO 0.48 K/uL (0.00-0.80); MONOCYTES PERCENT AUTO 9.3 % (0.0-8.0); NEUTROPHILS ABSOLUTE AUTO 2.88 K/uL (1.80-7.70); NEUTROPHILS PERCENT AUTO 55.7 % (41.0-71.0); PLATELET COUNT,PLT 248 K/uL (150-400); RED BLOOD CELL COUNT 3.89 M/uL (4.52-5.90); WHITE BLOOD CELL COUNT,WBC 5.17 K/uL (3.9-11.3)
[2023-10-20 07:26] LABS: INR 2.54 (0.86-1.11)
[2023-10-20 07:44] LABS: A/G RATIO 0.7 (0.9-1.6); ALBUMIN 2.6 g/dL (3.4-5.0); BILIRUBIN TOTAL 0.6 mg/dL (0.2-1.0); CALCIUM 8.3 mg/dL (8.5-10.1); CARBON DIOXIDE,CO2 26.6 mmol/L (21.0-32.0); CREATININE 1.5 mg/dL (0.8-1.3); EST CRCL DRUG DOSING (CG) 43.11 mL/min; PROTEIN TOTAL,TP 6.1 g/dL (6.4-8.2)
[2023-10-20] MEDS: Insulin Aspart 100 Units/ML 3 ML Pen SUBCUT SCH ×3 (08:00→18:05)
[2023-10-20] MEDS: Cyanocobalamin (Vitamin B12) 500 MCG Tab PO SCH (09:30)
[2023-10-20] MEDS: Metoprolol Succinate 100 MG Tab.ER PO SCH (09:30)
[2023-10-20] MEDS: Cholecalciferol (Vitamin D3) 25 MCG Tab PO SCH (09:30)
[2023-10-20] MEDS: Lisinopril 10 MG Tab PO SCH ×2 (09:31→21:38)
[2023-10-20] MEDS: Allopurinol 300 MG Tab PO SCH (09:31)
[2023-10-20] MEDS: Folic Acid 1 MG Tab PO SCH (09:31)
[2023-10-20] MEDS: Thiamine 100 MG Tab PO SCH (09:31)
[2023-10-20] MEDS: Pantoprazole 40 MG Tab.CR PO SCH (09:31)
[2023-10-20] MEDS ORDERED: Warfarin 2.5 MG Tab PO ONE (14:00)
[2023-10-20] MEDS: Warfarin Sliding Scale PO SCH (15:09)
[2023-10-20] MEDS: QUEtiapine 25 MG Tab PO SCH (21:38)
[2023-10-20] MEDS: Pravastatin 40 MG Tab PO SCH (21:40)
[2023-10-21 06:11] LABS: BASOPHILS ABSOLUTE AUTO 0.03 K/uL (0.00-0.20); BASOPHILS PERCENT AUTO 0.5 % (0.0-1.0); EOSINOPHILS ABSOLUTE AUTO 0.42 K/uL (0.00-0.45); EOSINOPHILS PERCENT AUTO 7.2 % (0.0-6.0); HEMATOCRIT 35.7 % (42.0-52.0); HEMOGLOBIN 11.6 g/dL (14.0-18.0); IMMATURE GRAN ABSOLUTE AUTO 0.03 K/uL (0.00-0.05); IMMATURE GRAN PERCENT AUTO 0.5 % (0.0-0.4); LYMPHOCYTES ABSOLUTE AUTO 1.46 K/uL (1.00-4.80); LYMPHOCYTES PERCENT AUTO 25.2 % (24.0-44.0); MEAN CORPUSCULAR HEMOGLOBIN 29.4 pg (28.0-32.0); MEAN CORPUSCULAR HGB CONC 32.5 g/dL (32.0-36.0); MEAN CORPUSCULAR VOLUME 90.4 fL (83.0-99.0); MEAN PLATELET VOLUME 9.7 fL (9.4-12.4); MONOCYTES ABSOLUTE AUTO 0.53 K/uL (0.00-0.80); MONOCYTES PERCENT AUTO 9.1 % (0.0-8.0); NEUTROPHILS ABSOLUTE AUTO 3.33 K/uL (1.80-7.70); NEUTROPHILS PERCENT AUTO 57.5 % (41.0-71.0); PLATELET COUNT,PLT 258 K/uL (150-400); RED BLOOD CELL COUNT 3.95 M/uL (4.52-5.90)
[2023-10-21 06:36] LABS: A/G RATIO 0.7 (0.9-1.6); ALBUMIN 2.5 g/dL (3.4-5.0); BILIRUBIN TOTAL 0.7 mg/dL (0.2-1.0); CARBON DIOXIDE,CO2 25.3 mmol/L (21.0-32.0); CREATININE 1.5 mg/dL (0.8-1.3); EST CRCL DRUG DOSING (CG) 43.11 mL/min; POTASSIUM,K 3.9 mmol/L (3.5-5.1); PROTEIN TOTAL,TP 6.1 g/dL (6.4-8.2)
[2023-10-21 06:40] LABS: CALCIUM 8.4 mg/dL (8.5-10.1)
[2023-10-21 06:49] LABS: INR 2.62 (0.86-1.11)
[2023-10-21] MEDS: Insulin Aspart 100 Units/ML 3 ML Pen SUBCUT SCH ×3 (07:04→17:33)
[2023-10-21] MEDS: Acetaminophen 325 MG Tab PO PRN (08:53)
[2023-10-21] MEDS: Metoprolol Succinate 100 MG Tab.ER PO SCH (08:53)
[2023-10-21] MEDS: Thiamine 100 MG Tab PO SCH (08:53)
[2023-10-21] MEDS: Allopurinol 300 MG Tab PO SCH (08:53)
[2023-10-21] MEDS: Pantoprazole 40 MG Tab.CR PO SCH (08:53)
[2023-10-21] MEDS: Folic Acid 1 MG Tab PO SCH (08:53)
[2023-10-21] MEDS: Cyanocobalamin (Vitamin B12) 500 MCG Tab PO SCH (08:53)
[2023-10-21] MEDS: Lisinopril 10 MG Tab PO SCH ×2 (08:54→20:18)
[2023-10-21] MEDS: Cholecalciferol (Vitamin D3) 25 MCG Tab PO SCH (08:54)
[2023-10-21] MEDS: Warfarin Sliding Scale PO SCH (13:49)
[2023-10-21] MEDS ORDERED: Warfarin 2.5 MG Tab PO ONE (14:00)
[2023-10-21] MEDS: Pravastatin 40 MG Tab PO SCH (20:18)
[2023-10-21] MEDS: QUEtiapine 25 MG Tab PO SCH (20:18)
[2023-10-21] MEDS: Pregabalin 50 MG Cap PO PRN (21:59)
[2023-10-21] MEDS: Albuterol/Ipratropium 3.0-0.5 MG/3 ML Neb Soln NEB PRN (23:06)
[2023-10-22] MEDS: Insulin Aspart 100 Units/ML 3 ML Pen SUBCUT SCH ×3 (06:41→16:36)
[2023-10-22] MEDS: Metoprolol Succinate 100 MG Tab.ER PO SCH (08:37)
[2023-10-22] MEDS: Folic Acid 1 MG Tab PO SCH (08:37)
[2023-10-22] MEDS: Pantoprazole 40 MG Tab.CR PO SCH (08:37)
[2023-10-22] MEDS: Lisinopril 10 MG Tab PO SCH ×2 (08:37→21:13)
[2023-10-22] MEDS: Allopurinol 300 MG Tab PO SCH (08:38)
[2023-10-22] MEDS: Cyanocobalamin (Vitamin B12) 500 MCG Tab PO SCH (08:38)
[2023-10-22] MEDS: Thiamine 100 MG Tab PO SCH (08:38)
[2023-10-22] MEDS: Cholecalciferol (Vitamin D3) 25 MCG Tab PO SCH (08:38)
[2023-10-22] MEDS: Albuterol/Ipratropium 3.0-0.5 MG/3 ML Neb Soln NEB PRN (09:17)
[2023-10-22] MEDS ORDERED: Warfarin 2.5 MG Tab PO ONE (14:00)
[2023-10-22] MEDS: Warfarin Sliding Scale PO SCH (14:34)
[2023-10-22] MEDS: Pravastatin 40 MG Tab PO SCH (21:07)
[2023-10-22] MEDS: QUEtiapine 25 MG Tab PO SCH (21:09)
[2023-10-22] MEDS: Pregabalin 50 MG Cap PO PRN (21:10)
[2023-10-23 06:17] LABS: BASOPHILS ABSOLUTE AUTO 0.03 K/uL (0.00-0.20); BASOPHILS PERCENT AUTO 0.4 % (0.0-1.0); EOSINOPHILS ABSOLUTE AUTO 0.53 K/uL (0.00-0.45); EOSINOPHILS PERCENT AUTO 7.5 % (0.0-6.0); HEMOGLOBIN 11.4 g/dL (14.0-18.0); IMMATURE GRAN ABSOLUTE AUTO 0.02 K/uL (0.00-0.05); IMMATURE GRAN PERCENT AUTO 0.3 % (0.0-0.4); LYMPHOCYTES ABSOLUTE AUTO 1.33 K/uL (1.00-4.80); LYMPHOCYTES PERCENT AUTO 18.9 % (24.0-44.0); MEAN CORPUSCULAR HGB CONC 31.7 g/dL (32.0-36.0); MEAN CORPUSCULAR VOLUME 91.6 fL (83.0-99.0); MEAN PLATELET VOLUME 9.4 fL (9.4-12.4); MONOCYTES ABSOLUTE AUTO 0.57 K/uL (0.00-0.80); MONOCYTES PERCENT AUTO 8.1 % (0.0-8.0); NEUTROPHILS ABSOLUTE AUTO 4.55 K/uL (1.80-7.70); NEUTROPHILS PERCENT AUTO 64.8 % (41.0-71.0); PLATELET COUNT,PLT 256 K/uL (150-400); RED BLOOD CELL COUNT 3.93 M/uL (4.52-5.90); WHITE BLOOD CELL COUNT,WBC 7.03 K/uL (3.9-11.3)
[2023-10-23] MEDS: Insulin Aspart 100 Units/ML 3 ML Pen SUBCUT SCH ×3 (06:36→16:56)
[2023-10-23 06:52] LABS: INR 3.55 (0.86-1.11)
[2023-10-23 07:12] LABS: A/G RATIO 0.7 (0.9-1.6); ALBUMIN 2.5 g/dL (3.4-5.0); BILIRUBIN TOTAL 0.7 mg/dL (0.2-1.0); CALCIUM 8.6 mg/dL (8.5-10.1); CARBON DIOXIDE,CO2 23.2 mmol/L (21.0-32.0); CREATININE 1.6 mg/dL (0.8-1.3); EST CRCL DRUG DOSING (CG) 40.42 mL/min; POTASSIUM,K 4.4 mmol/L (3.5-5.1); PROTEIN TOTAL,TP 6.2 g/dL (6.4-8.2)
[2023-10-23] MEDS: Cyanocobalamin (Vitamin B12) 500 MCG Tab PO SCH (09:10)
[2023-10-23] MEDS: Cholecalciferol (Vitamin D3) 25 MCG Tab PO SCH (09:10)
[2023-10-23] MEDS: Folic Acid 1 MG Tab PO SCH (09:10)
[2023-10-23] MEDS: Pantoprazole 40 MG Tab.CR PO SCH (09:10)
[2023-10-23] MEDS: Thiamine 100 MG Tab PO SCH (09:11)
[2023-10-23] MEDS: Lisinopril 10 MG Tab PO SCH ×2 (09:11→20:30)
[2023-10-23] MEDS: Metoprolol Succinate 100 MG Tab.ER PO SCH (09:11)
[2023-10-23] MEDS: Allopurinol 300 MG Tab PO SCH (09:11)
[2023-10-23] MEDS: Acetaminophen 325 MG Tab PO PRN (10:25)
[2023-10-23] MEDS: Pregabalin 50 MG Cap PO PRN (10:26)
[2023-10-23] MEDS: Warfarin Sliding Scale PO SCH (14:12)
[2023-10-23] MEDS: Pravastatin 40 MG Tab PO SCH (20:31)
[2023-10-23] MEDS: QUEtiapine 25 MG Tab PO SCH (20:32)
[2023-10-24 06:12] LABS: INR 3.36 (0.86-1.11)
[2023-10-24] MEDS: Insulin Aspart 100 Units/ML 3 ML Pen SUBCUT SCH ×3 (06:42→16:58)
[2023-10-24 08:06] LABS: CALCIUM 8.5 mg/dL (8.5-10.1); CARBON DIOXIDE,CO2 25.8 mmol/L (21.0-32.0); CREATININE 1.9 mg/dL (0.8-1.3); EST CRCL DRUG DOSING (CG) 34.04 mL/min; POTASSIUM,K 4.1 mmol/L (3.5-5.1)
[2023-10-24] MEDS ORDERED: Sodium Chloride 0.9% 500 ML IV SCH (09:45)
[2023-10-24] MEDS: Cyanocobalamin (Vitamin B12) 500 MCG Tab PO SCH (11:53)
[2023-10-24] MEDS: Folic Acid 1 MG Tab PO SCH (11:54)
[2023-10-24] MEDS: Cholecalciferol (Vitamin D3) 25 MCG Tab PO SCH (11:54)
[2023-10-24] MEDS: Thiamine 100 MG Tab PO SCH (11:54)
[2023-10-24] MEDS: Lisinopril 10 MG Tab PO SCH ×3 (11:55→21:16)
[2023-10-24] MEDS: Allopurinol 300 MG Tab PO SCH (11:59)
[2023-10-24] MEDS: Pantoprazole 40 MG Tab.CR PO SCH (11:59)
[2023-10-24] MEDS: Acetaminophen 325 MG Tab PO PRN (12:44)
[2023-10-24] MEDS: Pregabalin 50 MG Cap PO PRN (12:45)
[2023-10-24] MEDS: Warfarin Sliding Scale PO SCH (14:16)
[2023-10-24] MEDS: Metoprolol Succinate 100 MG Tab.ER PO SCH (15:04)
[2023-10-24] MEDS: Pravastatin 40 MG Tab PO SCH ×2 (19:42→21:16)
[2023-10-24] MEDS: QUEtiapine 25 MG Tab PO SCH ×2 (19:44→21:17)
[2023-10-25 06:13] LABS: BASOPHILS ABSOLUTE AUTO 0.03 K/uL (0.00-0.20); BASOPHILS PERCENT AUTO 0.4 % (0.0-1.0); EOSINOPHILS ABSOLUTE AUTO 0.54 K/uL (0.00-0.45); EOSINOPHILS PERCENT AUTO 8.1 % (0.0-6.0); HEMATOCRIT 36.5 % (42.0-52.0); HEMOGLOBIN 11.4 g/dL (14.0-18.0); IMMATURE GRAN ABSOLUTE AUTO 0.03 K/uL (0.00-0.05); IMMATURE GRAN PERCENT AUTO 0.4 % (0.0-0.4); LYMPHOCYTES ABSOLUTE AUTO 1.34 K/uL (1.00-4.80); LYMPHOCYTES PERCENT AUTO 20.1 % (24.0-44.0); MEAN CORPUSCULAR HEMOGLOBIN 28.8 pg (28.0-32.0); MEAN CORPUSCULAR HGB CONC 31.2 g/dL (32.0-36.0); MEAN CORPUSCULAR VOLUME 92.2 fL (83.0-99.0); MEAN PLATELET VOLUME 9.8 fL (9.4-12.4); MONOCYTES ABSOLUTE AUTO 0.57 K/uL (0.00-0.80); MONOCYTES PERCENT AUTO 8.5 % (0.0-8.0); NEUTROPHILS ABSOLUTE AUTO 4.16 K/uL (1.80-7.70); NEUTROPHILS PERCENT AUTO 62.5 % (41.0-71.0); PLATELET COUNT,PLT 263 K/uL (150-400); RED BLOOD CELL COUNT 3.96 M/uL (4.52-5.90); WHITE BLOOD CELL COUNT,WBC 6.67 K/uL (3.9-11.3)
[2023-10-25 06:46] LABS: A/G RATIO 0.7 (0.9-1.6); ALBUMIN 2.5 g/dL (3.4-5.0); BILIRUBIN TOTAL 0.4 mg/dL (0.2-1.0); CALCIUM 8.4 mg/dL (8.5-10.1); CARBON DIOXIDE,CO2 23.8 mmol/L (21.0-32.0); CREATININE 1.7 mg/dL (0.8-1.3); EST CRCL DRUG DOSING (CG) 38.04 mL/min; PROTEIN TOTAL,TP 6.1 g/dL (6.4-8.2)
[2023-10-25] MEDS: Insulin Aspart 100 Units/ML 3 ML Pen SUBCUT SCH ×3 (06:50→19:33)
[2023-10-25] MEDS: Thiamine 100 MG Tab PO SCH (08:14)
[2023-10-25] MEDS: Metoprolol Succinate 100 MG Tab.ER PO SCH (08:14)
[2023-10-25] MEDS: Lisinopril 10 MG Tab PO SCH ×2 (08:14→22:22)
[2023-10-25] MEDS: Allopurinol 300 MG Tab PO SCH (08:14)
[2023-10-25] MEDS: Cyanocobalamin (Vitamin B12) 500 MCG Tab PO SCH (08:14)
[2023-10-25] MEDS: Cholecalciferol (Vitamin D3) 25 MCG Tab PO SCH (08:14)
[2023-10-25] MEDS: Pantoprazole 40 MG Tab.CR PO SCH (08:15)
[2023-10-25] MEDS: Folic Acid 1 MG Tab PO SCH (08:15)
[2023-10-25] MEDS: Pregabalin 50 MG Cap PO PRN (10:59)
[2023-10-25] MEDS: Acetaminophen 325 MG Tab PO PRN (10:59)
[2023-10-25] MEDS ORDERED: Sodium Chloride 0.9% 500 ML IV SCH (13:00)
[2023-10-25] MEDS ORDERED: Warfarin 2.5 MG Tab PO ONE (16:30)
[2023-10-25] MEDS: Warfarin Sliding Scale PO SCH (16:43)
[2023-10-25] MEDS: Pravastatin 40 MG Tab PO SCH (22:21)
[2023-10-25] MEDS: QUEtiapine 25 MG Tab PO SCH (22:22)
[2023-10-26 06:40] LABS: INR 2.88 (0.86-1.11)
[2023-10-26] MEDS: Insulin Aspart 100 Units/ML 3 ML Pen SUBCUT SCH ×3 (07:29→19:37)
[2023-10-26] MEDS: Cholecalciferol (Vitamin D3) 25 MCG Tab PO SCH (10:10)
[2023-10-26] MEDS: Cyanocobalamin (Vitamin B12) 500 MCG Tab PO SCH (10:10)
[2023-10-26] MEDS: Allopurinol 300 MG Tab PO SCH (10:10)
[2023-10-26] MEDS: Pantoprazole 40 MG Tab.CR PO SCH (10:11)
[2023-10-26] MEDS: Thiamine 100 MG Tab PO SCH (10:11)
[2023-10-26] MEDS: Lisinopril 10 MG Tab PO SCH ×2 (10:11→20:07)
[2023-10-26] MEDS: Folic Acid 1 MG Tab PO SCH (10:11)
[2023-10-26] MEDS: Metoprolol Succinate 100 MG Tab.ER PO SCH (10:16)
[2023-10-26] MEDS: Pregabalin 50 MG Cap PO PRN (10:23)
[2023-10-26] MEDS: Acetaminophen 325 MG Tab PO PRN (10:23)
[2023-10-26] MEDS ORDERED: Warfarin 2.5 MG Tab PO ONE (14:00)
[2023-10-26] MEDS: Warfarin Sliding Scale PO SCH (17:38)
[2023-10-26] MEDS: Pravastatin 40 MG Tab PO SCH (20:05)
[2023-10-26] MEDS: QUEtiapine 25 MG Tab PO SCH (20:06)
[2023-10-27 06:25] LABS: INR 3.15 (0.86-1.11)
[2023-10-27] MEDS: Insulin Aspart 100 Units/ML 3 ML Pen SUBCUT SCH ×3 (07:06→18:35)
[2023-10-27] MEDS: Pantoprazole 40 MG Tab.CR PO SCH (09:26)
[2023-10-27] MEDS: Cholecalciferol (Vitamin D3) 25 MCG Tab PO SCH (09:26)
[2023-10-27] MEDS: Folic Acid 1 MG Tab PO SCH (09:26)
[2023-10-27] MEDS: Cyanocobalamin (Vitamin B12) 500 MCG Tab PO SCH (09:26)
[2023-10-27] MEDS: Metoprolol Succinate 100 MG Tab.ER PO SCH (09:27)
[2023-10-27] MEDS: Thiamine 100 MG Tab PO SCH (09:27)
[2023-10-27] MEDS: Pregabalin 50 MG Cap PO PRN ×2 (09:27→19:41)
[2023-10-27] MEDS: Allopurinol 300 MG Tab PO SCH (09:27)
[2023-10-27] MEDS: Lisinopril 10 MG Tab PO SCH ×2 (09:33→21:06)
[2023-10-27] MEDS: Acetaminophen 325 MG Tab PO PRN ×2 (09:33→19:41)
[2023-10-27] MEDS ORDERED: Warfarin 2.5 MG Tab PO SCH (14:00)
[2023-10-27] MEDS ORDERED: Warfarin 2.5 MG Tab ONE (17:05)
[2023-10-27] MEDS: Warfarin Sliding Scale PO SCH (18:34)
[2023-10-27] MEDS: Albuterol/Ipratropium 3.0-0.5 MG/3 ML Neb Soln NEB PRN (19:42)
[2023-10-27] MEDS: QUEtiapine 25 MG Tab PO SCH (21:06)
[2023-10-27] MEDS: Pravastatin 40 MG Tab PO SCH (21:07)
[2023-10-28 06:08] LABS: HEMATOCRIT 39.1 % (42.0-52.0); HEMOGLOBIN 12.3 g/dL (14.0-18.0); MEAN CORPUSCULAR HEMOGLOBIN 29.3 pg (28.0-32.0); MEAN CORPUSCULAR HGB CONC 31.5 g/dL (32.0-36.0); MEAN CORPUSCULAR VOLUME 93.1 fL (83.0-99.0); MEAN PLATELET VOLUME 9.9 fL (9.4-12.4); PLATELET COUNT,PLT 253 K/uL (150-400); WHITE BLOOD CELL COUNT,WBC 5.85 K/uL (3.9-11.3)
[2023-10-28 06:30] LABS: CARBON DIOXIDE,CO2 25.7 mmol/L (21.0-32.0); CREATININE 1.5 mg/dL (0.8-1.3); EST CRCL DRUG DOSING (CG) 43.11 mL/min; POTASSIUM,K 4.4 mmol/L (3.5-5.1)
[2023-10-28 06:32] LABS: INR 3.37 (0.86-1.11)
[2023-10-28] MEDS: Insulin Aspart 100 Units/ML 3 ML Pen SUBCUT SCH ×3 (06:45→18:22)
[2023-10-28] MEDS: Acetaminophen 325 MG Tab PO PRN ×2 (09:57→19:04)
[2023-10-28] MEDS: Cyanocobalamin (Vitamin B12) 500 MCG Tab PO SCH (09:58)
[2023-10-28] MEDS: Allopurinol 300 MG Tab PO SCH (09:58)
[2023-10-28] MEDS: Folic Acid 1 MG Tab PO SCH (09:58)
[2023-10-28] MEDS: Pantoprazole 40 MG Tab.CR PO SCH (09:58)
[2023-10-28] MEDS: Cholecalciferol (Vitamin D3) 25 MCG Tab PO SCH (09:58)
[2023-10-28] MEDS: Thiamine 100 MG Tab PO SCH (09:58)
[2023-10-28] MEDS: Metoprolol Succinate 100 MG Tab.ER PO SCH (10:00)
[2023-10-28] MEDS: Lisinopril 10 MG Tab PO SCH ×2 (10:00→20:46)
[2023-10-28] MEDS: Warfarin Sliding Scale PO SCH (13:55)
[2023-10-28] MEDS ORDERED: Pregabalin 50 MG Cap PO PRN (15:14)
[2023-10-28] MEDS: QUEtiapine 25 MG Tab PO SCH (20:46)
[2023-10-28] MEDS: Pravastatin 40 MG Tab PO SCH (20:46)
[2023-10-29 06:18] LABS: INR 3.33 (0.86-1.11)
[2023-10-29] MEDS: Insulin Aspart 100 Units/ML 3 ML Pen SUBCUT SCH ×3 (07:26→17:21)
[2023-10-29] MEDS: Metoprolol Succinate 100 MG Tab.ER PO SCH (09:40)
[2023-10-29] MEDS: Allopurinol 300 MG Tab PO SCH (09:40)
[2023-10-29] MEDS: Cholecalciferol (Vitamin D3) 25 MCG Tab PO SCH (09:41)
[2023-10-29] MEDS: Cyanocobalamin (Vitamin B12) 500 MCG Tab PO SCH (09:41)
[2023-10-29] MEDS: Pantoprazole 40 MG Tab.CR PO SCH (09:42)
[2023-10-29] MEDS: Lisinopril 10 MG Tab PO SCH (09:42)
[2023-10-29] MEDS: Thiamine 100 MG Tab PO SCH (09:42)
[2023-10-29] MEDS: Folic Acid 1 MG Tab PO SCH (09:43)
[2023-10-29] MEDS: Warfarin Sliding Scale PO SCH (15:25)
[2023-10-29] MEDS ORDERED: Sodium Chloride 0.9% 500 ML IV SCH (16:15)
[2023-10-29] MEDS: QUEtiapine 25 MG Tab PO SCH (21:07)
[2023-10-29] MEDS: Pravastatin 40 MG Tab PO SCH (21:07)
[2023-10-30 06:51] LABS: INR 3.18 (0.86-1.11)
[2023-10-30] MEDS: Insulin Aspart 100 Units/ML 3 ML Pen SUBCUT SCH ×3 (07:16→16:13)
[2023-10-30] MEDS: Acetaminophen 325 MG Tab PO PRN ×3 (07:33→22:54)
[2023-10-30] MEDS: Pantoprazole 40 MG Tab.CR PO SCH (08:11)
[2023-10-30] MEDS: Cyanocobalamin (Vitamin B12) 500 MCG Tab PO SCH (08:11)
[2023-10-30] MEDS: Metoprolol Succinate 100 MG Tab.ER PO SCH (08:11)
[2023-10-30] MEDS: Allopurinol 300 MG Tab PO SCH (08:11)
[2023-10-30] MEDS: Folic Acid 1 MG Tab PO SCH (08:12)
[2023-10-30] MEDS: Cholecalciferol (Vitamin D3) 25 MCG Tab PO SCH (08:12)
[2023-10-30] MEDS: Thiamine 100 MG Tab PO SCH (08:12)
[2023-10-30] MEDS ORDERED: Lisinopril 10 MG Tab PO SCH (09:00)
[2023-10-30] MEDS: Warfarin Sliding Scale PO SCH (15:15)
[2023-10-30] MEDS: Mirtazapine 15 MG Tab PO SCH (20:42)
[2023-10-30] MEDS: Melatonin 3 MG Tab PO SCH (20:42)
[2023-10-30] MEDS: Pravastatin 40 MG Tab PO SCH (20:43)
[2023-10-30] MEDS ORDERED: Mirtazapine 15 MG Tab PO SCH (21:00)
[2023-10-31] MEDS: Acetaminophen 325 MG Tab PO PRN ×2 (04:45→10:28)
[2023-10-31 05:49] LABS: BASOPHILS ABSOLUTE AUTO 0.04 K/uL (0.00-0.20); BASOPHILS PERCENT AUTO 0.6 % (0.0-1.0); EOSINOPHILS ABSOLUTE AUTO 0.47 K/uL (0.00-0.45); EOSINOPHILS PERCENT AUTO 7.1 % (0.0-6.0); HEMATOCRIT 37.5 % (42.0-52.0); HEMOGLOBIN 11.9 g/dL (14.0-18.0); IMMATURE GRAN ABSOLUTE AUTO 0.02 K/uL (0.00-0.05); IMMATURE GRAN PERCENT AUTO 0.3 % (0.0-0.4); LYMPHOCYTES ABSOLUTE AUTO 1.63 K/uL (1.00-4.80); LYMPHOCYTES PERCENT AUTO 24.7 % (24.0-44.0); MEAN CORPUSCULAR HEMOGLOBIN 28.8 pg (28.0-32.0); MEAN CORPUSCULAR HGB CONC 31.7 g/dL (32.0-36.0); MEAN CORPUSCULAR VOLUME 90.8 fL (83.0-99.0); MEAN PLATELET VOLUME 9.7 fL (9.4-12.4); MONOCYTES ABSOLUTE AUTO 0.55 K/uL (0.00-0.80); MONOCYTES PERCENT AUTO 8.3 % (0.0-8.0); PLATELET COUNT,PLT 223 K/uL (150-400); RED BLOOD CELL COUNT 4.13 M/uL (4.52-5.90); WHITE BLOOD CELL COUNT,WBC 6.61 K/uL (3.9-11.3)
[2023-10-31 06:11] LABS: INR 2.78 (0.86-1.11)
[2023-10-31 06:26] LABS: CARBON DIOXIDE,CO2 23.9 mmol/L (21.0-32.0); EST CRCL DRUG DOSING (CG) 32.33 mL/min; POTASSIUM,K 4.3 mmol/L (3.5-5.1)
[2023-10-31] MEDS: Insulin Aspart 100 Units/ML 3 ML Pen SUBCUT SCH ×3 (06:32→19:10)
[2023-10-31] MEDS ORDERED: Lactated Ringers 1,000 ML IV SCH (09:15)
[2023-10-31] MEDS: Pantoprazole 40 MG Tab.CR PO SCH (09:16)
[2023-10-31] MEDS: Cholecalciferol (Vitamin D3) 25 MCG Tab PO SCH (09:16)
[2023-10-31] MEDS: Allopurinol 300 MG Tab PO SCH (09:16)
[2023-10-31] MEDS: Folic Acid 1 MG Tab PO SCH (09:16)
[2023-10-31] MEDS: Cyanocobalamin (Vitamin B12) 500 MCG Tab PO SCH (09:16)
[2023-10-31] MEDS: Thiamine 100 MG Tab PO SCH (09:16)
[2023-10-31] MEDS: Metoprolol Succinate 100 MG Tab.ER PO SCH (10:29)
[2023-10-31] MEDS ORDERED: Warfarin 2.5 MG Tab PO ONE (14:00)
[2023-10-31] MEDS: Warfarin Sliding Scale PO SCH (19:09)
[2023-10-31] MEDS: Melatonin 3 MG Tab PO SCH (20:21)
[2023-10-31] MEDS: Pravastatin 40 MG Tab PO SCH (20:22)
[2023-10-31] MEDS: Mirtazapine 15 MG Tab PO SCH (20:22)
[2023-10-31] MEDS ORDERED: Tamsulosin 0.4 MG Cap.ER PO SCH (21:00)
[2023-11-01] MEDS: Insulin Aspart 100 Units/ML 3 ML Pen SUBCUT SCH (09:08)
[2023-11-01] MEDS: Cholecalciferol (Vitamin D3) 25 MCG Tab PO SCH (09:09)
[2023-11-01] MEDS: Allopurinol 300 MG Tab PO SCH (09:09)
[2023-11-01] MEDS: Cyanocobalamin (Vitamin B12) 500 MCG Tab PO SCH (09:09)
[2023-11-01] MEDS: Folic Acid 1 MG Tab PO SCH (09:09)
[2023-11-01] MEDS: Pantoprazole 40 MG Tab.CR PO SCH (09:09)
[2023-11-01] MEDS: Thiamine 100 MG Tab PO SCH (09:09)
[2023-11-01] MEDS: Metoprolol Succinate 100 MG Tab.ER PO SCH (09:18)
[2023-11-01 09:19] VITALS: BP 125/71; PULSE 74
[2023-11-01] MEDS ORDERED: Warfarin 2.5 MG Tab PO ONE (10:00)
== END 2023-11-01 10:30 | DRG 683 ==
LOC: MW.ED 09:31 → MW.MS 14:30
PROVIDERS: ADMIT Internal Medicine; ATTEND Internal Medicine
DX: N17.9 Acute kidney failure, unspecified (principal); I27.82 Chronic pulmonary embolism; Z68.41 Body mass index [BMI] 40.0-44.9, adult; N39.0 Urinary tract infection, site not specified; R26.2 Difficulty in walking, not elsewhere classified; I10 Essential (primary) hypertension; Z66 Do not resuscitate; E66.01 Morbid (severe) obesity due to excess calories; B02.9 Zoster without complications; M10.9 Gout, unspecified; D50.9 Iron deficiency anemia, unspecified; R62.7 Adult failure to thrive; G31.84 Mild cognitive impairment of uncertain or unknown etiology; N13.9 Obstructive and reflux uropathy, unspecified; W18.30XA Fall on same level, unspecified, initial encounter; E11.649 Type 2 diabetes mellitus with hypoglycemia without coma; R53.81 Other malaise; I95.1 Orthostatic hypotension; E86.0 Dehydration; E11.65 Type 2 diabetes mellitus with hyperglycemia; E11.40 Type 2 diabetes mellitus with diabetic neuropathy, unspecified; S01.01XA Laceration without foreign body of scalp, initial encounter; E78.2 Mixed hyperlipidemia; F32.A Depression, unspecified; G47.00 Insomnia, unspecified; R33.9 Retention of urine, unspecified; S09.90XA Unspecified injury of head, initial encounter; R26.89 Other abnormalities of gait and mobility; Z23 Encounter for immunization; E11.9 Type 2 diabetes mellitus without complications; Z79.51 Long term (current) use of inhaled steroids; E66.9 Obesity, unspecified; Z98.890 Other specified postprocedural states; Z88.1 Allergy status to other antibiotic agents; Z88.8 Allergy status to other drugs, medicaments and biological substances; Z79.4 Long term (current) use of insulin; Z79.84 Long term (current) use of oral hypoglycemic drugs; Z79.01 Long term (current) use of anticoagulants; Z79.899 Other long term (current) drug therapy; Z68.45 Body mass index [BMI] 70 or greater, adult; Z87.891 Personal history of nicotine dependence; W22.8XXA Striking against or struck by other objects, initial encounter
CPT/HCPCS: 36415; 70450; 71045; 72125; 80053; 80307; 82550; 82803; 83690; 83735; 84439; 84443; 84484; 85025; 85730; 90715; 93005; J3475; 12002; 51702; 80048; 81001; 82947; 84100; 85027; 85610; 93010; 94640; 97110-GP; 97163-GP; 97530-GP; 99284; A9270-GY; J7040; J7120; J7620-GY